=== PATIENT | female | born 1930 | race Caucasian/White ===

== ENCOUNTER 2019-01-27 16:06 | Emergency (ER) | payer MEDICARE ==
[2019-01-27 16:54] LABS: COLLECTION METHOD CLEAN CATCH
[2019-01-27] MEDS ORDERED: LIPITOR 40MG TA40 MG PO (17:05)
[2019-01-27] MEDS ORDERED: SARAFEM20 MG PO (17:05)
[2019-01-27] MEDS ORDERED: NORVASC 5MG5 MG/TAB PO (17:05)
[2019-01-27] MEDS ORDERED: LIPITOR20 MG PO (17:06)
[2019-01-27] MEDS ORDERED: ZESTRIL 20MG TA20 MG PO (17:06)
[2019-01-27] MEDS ORDERED: NORVASC2.5 MG PO (17:06)
[2019-01-27] MEDS ORDERED: ELIQUIS 2.5 PO (17:07)
[2019-01-27] MEDS ORDERED: TENORMIN 2525 MG/TAB PO (17:07)
[2019-01-27 17:08] LABS: TRICYCLIC ANTIDEPRESS URINE NEGATIVE
[2019-01-27 17:16] LABS: PH 6 (5-8); SQUAMOUS EPITHELIAL 0-2 /hpf; URINE APPEARANCE Clear; URINE BACTERIA None Seen /hpf; URINE BILIRUBIN Negative (NEGATIVE); URINE BLOOD Negative (NEGATIVE); URINE COLOR Yellow; URINE GLUCOSE Negative (NEGATIVE); URINE KETONE Negative (NEGATIVE); URINE LEUKOCYTE ESTERASE 2+ (NEGATIVE); URINE NITRATE Negative (NEGATIVE); URINE PROTEIN(semi-quant) Negative (NEGATIVE); URINE RBC 0-2 /hpf; URINE UROBILINOGEN Negative (NEGATIVE)
[2019-01-27 18:13] LABS: BASO % 0.4 % (0.0-2.0); EOS % 0.2 % (0-4.0); GRAN # 8.7 (1.4-6.5); HEMATOCRIT 42.1 % (37.0-47.0); HEMOGLOBIN 14.4 g/dl (12.5-16.0); LYMPH # 0.8 (1.2-3.4); LYMPH % 8.2 % (20.0-51.0); MEAN CELL VOLUME 92 fl (80.0-100.0); MEAN CORPUSCULAR HEMOGLOBIN 31 pg (27.0-31.0); MEAN CORPUSCULAR HGB CONC 34 g/dl (33.0-37.0); MEAN PLATELET VOLUME 9.8 fl (7.4-10.4); MONO # 0.7 (0.1-0.6); MONO % 6.8 % (1.7-9.3); PLATELET COUNT 198 K/mm3 (130-400); RED BLOOD COUNT 4.59 M/mm3 (4.10-5.30); REDCELL DISTRIBUTION WIDTH-CV 12.2 % (11.5-14.5)
[2019-01-27 18:43] LABS: ALANINE AMINOTRANSFERASE 25 U/L (9-52); ALKALINE PHOSPHATASE 92 U/L (50-136); ANION GAP 11 mmol/L (7-16); AST,SGOT 32 U/L (15-37); BLOOD UREA NITROGEN 20 mg/dL (7-17); CALCIUM 9.3 mg/dL (8.4-10.2); CARBON DIOXIDE 22 mmol/L (22-30); CHLORIDE 105 mmol/L (98-107); CREATININE, serum 0.87 (0.52-1.25); GLUCOSE 125 mg/dL (74-106); POTASSIUM 3.9 mmol/L (3.4-5.0); SODIUM 138 mmol/L (137-145); TOTAL PROTEIN 7.1 gm/dL (6.4-8.2)
[2019-01-27 18:44] LABS: ACETAMINOPHEN < 10 ug/mL (10-30); ALCOHOL(ethanol),MEDICAL < 10 mg/dL; SALICYLATE < 1.0 mg/dL
--- NOTE | 2019-01-28 10:45 | NUR ---
SW responded to ED consult. The patient was brought in by EMS after voicing suicidal ideation. VICKY then met with the patient and patient's niece, Ximena. The patient lives with her niece (Ximena) and Ximena's . The patient reports that she is ready to and has always thought about , but would not want to act on it, due to being Zoroastrian. She states that her thoughts just became overwhelming, so she called 911. [facility] Screener, Viral, then met with the patient and her niece. Outpatient psych vs a [facility] facility was discussed. The patient reports that she would be agreeable and more interested in to [facility]. The patient's niece was also agreeable to this. [facility], Viral, reports that he will contact [facility] units for placement. The patient's niece was also interested in information for assisted living and long-term care placement for after a stay at [facility]. VICKY provided the patient's niece with contact information to [facility], [facility], and [facility]. The patient was interested in [facility] in [place], [place]. SW provided them with that contact information. The patient and patient's niece were also interested in completing a DPOA-HC. The patient verbalized that she wanted to name her niece, Ximena, her DPOA-HC, so that she could make decisions for her when she is unable to. VICKY and a SW from [facility] witnessed the patient sign. The patient was provided with the original and some copies. A copy was placed in the patient's chart and a copy was provided to Viral with [facility]. VICKY then updated the patient's nurse.
--- NOTE | 2019-01-28 13:38 | NUR ---
The patient was accepted at [facility] in [place] for Geripsych. The patient's niece informed VICKY that she does not feel comfortable transporting the patient. SW informed the patient's nurse and [employer]. [employer] to arrange secure transport.
[2019-01-28 16:00] VITALS: BP 119/75; PULSE 91; TEMP 97.8
== END 2019-01-28 16:08 ==
LOC: COL.ER 16:06
PROVIDERS: Emergency Medicine
DX: R45.851 Suicidal ideations (principal); F32.9 Major depressive disorder, single episode, unspecified; N39.0 Urinary tract infection, site not specified; I10 Essential (primary) hypertension; E78.5 Hyperlipidemia, unspecified; F03.90 Unspecified dementia, unspecified severity, without behavioral disturbance, psychotic disturbance, mood disturbance, and anxiety